=== PATIENT | female | born 1950 | race Caucasian/White ===

== ENCOUNTER → 2021-02-17 09:53 | Outpatient (CLI) | payer MEDICARE, SELFPAY ==
--- NOTE | 2021-02-17 | DI.US.S_ITS ---
PROCEDURE: US CAROTID DOPPLER BI INDICATIONS: OCCLUSION AND STENOSIS. History of left carotid endarterectomy, approximately 2012 TECHNIQUE: Color and pulse Doppler interrogation was performed of both carotid systems, with image documentation and velocity measurements. COMPARISON: None. FINDINGS: Stenosis calculations are based on SRU (Society of Radiologists in Ultrasound) criteria. Right side: Brachial blood pressure: 216/94 mm Hg. Common carotid artery peak systolic velocity: 70 cm/sec. Internal carotid artery peak systolic velocity: 250 cm/sec. Internal carotid artery end diastolic velocity: 46 cm/sec. External carotid artery peak systolic velocity: 217 cm/sec. ICA/CCA peak systolic ratio: 2.9 . Woods scale imaging description: There is chunky calcified stenotic disease involving the carotid bifurcation and proximal internal and external carotid arteries. There is a severe proximal left internal carotid artery stenosis. Percent internal carotid artery stenosis: Greater than 70% by velocity criteria . Vertebral artery: Flow direction is antegrade. Left side: Brachial blood pressure: 164/84 mm Hg. Common carotid artery peak systolic velocity: 214 cm/sec. Internal carotid artery peak systolic velocity: 157 cm/sec. Internal carotid artery end diastolic velocity: 25 cm/sec. External carotid artery peak systolic velocity: 171 cm/sec. ICA/CCA peak systolic ratio: 0.7 . Woods scale imaging description: Patent, post remote carotid endarterectomy Percent internal carotid artery stenosis: None identified. Vertebral artery: Not well seen IMPRESSION: 1. There is calcific atherosclerotic stenosis involving the right carotid bifurcation and proximal right internal carotid artery, which by velocity criteria is 70% or greater in the internal carotid artery. 2. Remote left carotid endarterectomy with wide patency. 3. Note is made of a significant pressure difference between the right and left brachial arteries. This implies a hemodynamically significant stenosis somewhere between the origin of the left subclavian artery and the left brachial cuff. The left vertebral artery is not well visualized, and the direction of flow in the left vertebral artery is not identified. Dictated by: Stan Rodriguez M.D. on 02/17/2021 at 13:01 Approved by: Stan Rodriguez M.D. on 02/17/2021 at 13:08
--- NOTE | 2021-02-17 | DI.ECHO.S_ITS ---
[facility] +---------+ : : [address] : : : : [id number] : : : : Phone: [phone] Echocardiogram Report + + :Name: CONOR GIORDANO Study Date: 02/17/2021 Height: 61 in : :[facility] ReadingLocation: Weight: 203 lb : : Gender: Female BSA: 1.9 m2 : :: 1950 Age: 70 yrs BP: 185/103 mmHg: :Reason For Study: Murmur : :Ordering Physician: Jerel : :Kathy Arellano Performed By: Demetris Alexander : :Referring: JEREL ARELLANO : + + Interpretation Summary 1) Mildly increased left ventricular thickness (concentric) with normal size, normal wall motion, and normal systolic function (EF 65-70%). 2) Normal right ventricular size and function. 3) No significant valvular abnormalities. 4) Hypertension present during the study (BP 185/103mmHg). 5) No prior Echo available for comparison. Procedure: A two-dimensional transthoracic echocardiogram with color flow and Doppler was performed. The study quality was technically adequate. There is no prior echocardiogram noted for this patient. The patient was in sinus rhythm with heart rates between 62-72 bpm during the exam. Left Ventricle: The left ventricle is normal in size. There is mild concentric left ventricular hypertrophy. Left ventricular systolic function is normal. The ejection fraction is estimated to be 65-70%. There are no focal wall motion abnormalities. Diastolic parameters suggest a relaxation abnormality of the left ventricle, consistent with probable normal filling pressures. Right Ventricle: The right ventricle is normal in size and function. Atria: Both atria are normal in size. There is no Doppler evidence for an interatrial shunt. Mitral Valve: The mitral valve is normal in structure and function. There is no mitral regurgitation noted. Aortic Valve: The aortic valve is normal in structure and function. There is no aortic valve stenosis. No aortic regurgitation is present. Tricuspid Valve: The tricuspid valve is normal in structure and function. Pulmonary artery pressures cannot be estimated because of the lack of a measurable TR jet velocity but the IVC suggests a CVP of around 3 mmHg. There is a trace or physiologic amount of tricuspid regurgitation. Pulmonic Valve: The pulmonic valve is not well seen, but is grossly normal. There is no pulmonic valvular regurgitation. Great Vessels: The aortic root is normal size. The dimensions of the ascending aorta are normal. The IVC is of normal diameter and collapses greater than 50% with a sniff. This suggests a low right atrial pressure of 3 mm Hg. Pericardium/ Pleura There is no pericardial effusion. There is no pleural effusion. MMode/2D Measurements & Calculations LVIDd: 4.8 cm LVOT diam: 2.0 cm LVIDs: 3.3 cm Ao root diam: 2.7 cm FS: 31.0 % asc Aorta Diam: 3.3 cm IVSd: 1.3 cm LVPWd: 1.1 cm LV madsen. diameter/BSA (cm/m^2): 2.5 LV sys. diameter/BSA (cm/m^2): 1.8 LA dimension: 3.4 cm RA long axis: 4.4 cm LA A2 area: 16.4 cm2 LA A4 area: 14.1 cm2 LA length (vol): 5.0 cm LA vol: 39.0 ml LA vol index: 20.5 ml/m2 LVLs ap4: 7.2 cm LVLd ap2: 7.4 cm LVLs ap2: 6.2 cm TAPSE_phl: 2.8 cm RVIDd/LVIDd_phl: 0.43 Doppler Measurements & Calculations LVOT Max Geraldo: 155.0 cm/sec MV E max geraldo: 103.0 cm/sec LV V1 max P.6 mmHg MV A max geraldo: 112.0 cm/sec LV V1 VTI: 32.5 cm MV E/A: 0.92 Med Peak E' Geraldo: 7.1 cm/sec E/E' med: 14.6 Lat Peak E' Geraldo: 6.9 cm/sec E/E' lat: 15.0 E/e' average: 14.8 MV dec time: 0.27 sec PA V2 max: 121.0 cm/sec SV(LVOT): 102.1 ml PA V2 mean: 91.1 cm/sec PA mean P.0 mmHg PA pr(Accel): 50.6 mmHg MV P1/2t-pr_phl: 80.0 msec Reading Physician:10:38 AM
== END ==
PROVIDERS: PCP Physician Assistant; Referring Provider Internal Medicine Cardiovascular Disease; Visit Provider Internal Medicine Cardiovascular Disease
DX: R01.1 Cardiac murmur, unspecified (principal); I65.23 Occlusion and stenosis of bilateral carotid arteries; Z98.890 Other specified postprocedural states
CPT/HCPCS: 93306; 93880

== ENCOUNTER 2021-02-17 12:22 | Emergency (ER) | payer MEDICARE, SELFPAY ==
[2021-02-17 12:27] VITALS: BP 212/88; PULSE 68; RESP 16; TEMP 36.6; O2SAT 100; BMI 38.3
--- NOTE | 2021-02-17 16:31 | ED.GENADULT ---
HPI - General Adult General Chief complaint: Hypertension Stated complaint: Sent From DI, High BP on Rt Arm Time Seen by Provider: 02/17/21 16:30 Source: patient Mode of arrival: Ambulatory Limitations: no limitations History of Present Illness HPI narrative: 70-year-old female nonsmoker with history of hypertension presents for evaluation of elevated blood pressure. She was in the Diagnostic Imaging Department and getting a carotid ultrasound when it was noted that her blood pressure was over 200. The patient has a mild, vague headache and denies any blurred vision, trouble speech nor other neurologic symptoms such as numbness, tingling or weakness. She denies any chest pain or shortness of breath and she has no abdominal pain, nausea or vomiting. She has been having difficulty controlling her blood pressure is. She takes her medications as directed and denies missing any doses Related Data Home Medications Medication Instructions Recorded Confirmed amlodipine 10 mg tablet 10 mg PO DAILY 02/17/21 02/17/21 bupropion HCl 300 mg 24 hr tablet, 300 mg PO DAILY 02/17/21 02/17/21 extended release hydralazine 50 mg tablet 50 mg PO TID 02/17/21 02/17/21 losartan 100 1 tab PO DAILY 02/17/21 02/17/21 mg-hydrochlorothiazide 25 mg tablet metoprolol succinate 25 mg 25 mg PO DAILY 02/17/21 02/17/21 tablet,extended release 24 hr potassium chloride 10 mEq 10 meq PO DAILY 02/17/21 02/17/21 tablet,extended release rosuvastatin 40 mg tablet 40 mg PO DAILY 02/17/21 02/17/21 Allergies Allergy/AdvReac Type Severity Reaction Status Date / Time No Known Drug Allergies Allergy Verified 02/17/21 12:27 Review of Systems Review of Systems Narrative: GENERAL: See HPI HEENT: Denies sinus pain, ear pain, sore throat, difficulty swallowing, dizziness. RESPIRATORY: Denies dyspnea, cough, wheezing, hemoptysis, sputum. CARDIOVASCULAR: Denies chest pain, palpitations, orthopnea, edema, GASTROINTESTINAL: Denies nausea, vomiting, abdominal pain, diarrhea, constipation, melena. : Denies dysuria, frequency, incontinence, hematuria, urinary retention. MUSCULOSKELETAL: denies weakness, joint pain, or bony pain SKIN: Denies rash, skin lesions, or other NEUROLOGIC: Denies weakness, numbness, change in speech, confusion, seizures, incoordination. PSYCHIATRIC: No concerning psychosocial issues. 12 point review of systems is negative except for those stated above Patient History Medical History Hypertension Social History Smoking Status: Unknown if ever smoked Smoking Status: Unknown if ever smoked alcohol intake frequency: holidays/special occasions only Substance Use Type: does not use Exam Narrative Exam Narrative: GEN: AOx3 and in mild distress EYES: Pupils are equal, round, and reactive to light and accommodation. Extraoccular muscles are intact bilaterally. There is no subconjunctival hemorrhage or exudate. CHEST: Lungs are clear to auscultation bilaterally and free of wheezes, rales, or rhonchi. Heart rate is regular rhythm, there are no murmurs, clicks, rubs, or gallops. There is no chest wall tenderness. ABD: Abdomen is soft and nontender. There is no guarding or rebound. Bowel sounds are normal in all 4 quadrants. There is no mass or organomegaly. EXT: Full painless ROM of all extremities with no loss of sensation or strength. SKIN: Warm, pink, and dry. No erythema or rash Initial Vital Signs Initial Vital Signs: Vital Signs Temperature 97.9 F 02/17/21 12:27 Pulse Rate 68 02/17/21 12:27 Respiratory Rate 16 02/17/21 12:27 Blood Pressure 212/88 H 02/17/21 12:27 Pulse Oximetry 100 02/17/21 12:27 Course Orders Ordered: ED Orders 02/17/21 15:45 BNP [NT-proBNP (BNP-Adult 18+)] Stat Complete Blood Count AUTO DIFF Stat Comprehensive Metabolic Panel Stat Lipase Stat Troponin & CK Cardiac Panel Stat 02/17/21 16:34 XR chest 1V Stat EKG-12 Lead Stat Discontinued Medications Aspirin (Aspirin 81 Mg Chew Tab) 324 mg PO NOW ONE Stop: 02/17/21 16:34 Last Admin: 02/17/21 16:54 Dose: 324 mg Documented by: BABS Vital Signs Vital signs: Vital Signs - 8 hr 02/17/21 12:27 02/17/21 16:34 02/17/21 16:56 Temperature 97.9 F Pulse Rate 68 77 70 Respiratory Rate 16 14 16 Blood Pressure 212/88 H 213/86 H Pulse Oximetry 100 99 99 02/17/21 17:36 Temperature Pulse Rate 70 Respiratory Rate 14 Blood Pressure 189/79 H Pulse Oximetry 99 Medical Decision Making Lab Data Result diagrams: 02/17/21 15:45 02/17/21 15:45 Labs: Lab Results 02/17/21 02/17/21 02/17/21 Range/Units 15:45 15:45 15:45 WBC 6.6 (4.5-11.0) X10^3/uL RBC 3.80 L (4.0-5.2) X10^6/uL Hgb 12.6 (12.0-16.0) g/dL Hct 36.9 (36-46) % MCV 97.3 (80-100) fL MCH 33.2 (26-34) PG MCHC 34.1 (30-36) % RDW 14.0 (11.6-14.8) % Plt Count 288 (150-400) X10^3/uL Neut % (Auto) 58.0 (50-75) % Lymph % (Auto) 28.7 (25-40) % Eddy % (Auto) 11.4 (3-14) % Eos % (Auto) 1.2 L (2-4) % Baso % (Auto) 0.7 (0-2) % Neut # (Auto) 3800 (8106-6203) /uL Lymph # (Auto) 1900 (3163-9388) /uL Eddy # (Auto) 700 (0-900) /uL Eos # (Auto) 100 (0-450) /uL Baso # (Auto) 0 (0-100) /uL Sodium 136 L (137-145) mmol/L Potassium 2.8 L (3.4-5.1) mmol/L Chloride 98 (98-107) mmol/L Carbon Dioxide 30 (22-32) mmol/L BUN 14 (7-17) mg/dL Creatinine 1.04 (0.52-1.04) mg/dL Estimated GFR 52.7 L (>60) mL/min BUN/Creatinine Ratio 13.5 (6-22) Glucose 106 (80-110) mg/dL Calcium 9.8 (8.4-10.2) mg/dL Total Bilirubin 0.5 (0.2-1.3) mg/dL AST 34 (14-36) IU/L ALT 27 (<35) IU/L Alkaline Phosphatase 88 (38-126) U/L Total Creatine Kinase 57 (30-135) U/L CK-MB (CK-2) TNP CK-MB (CK-2) Rel Index TNP Troponin I < 0.012 (0.01-0.034) ng/mL NT-Pro-B Natriuret Pep 50 (<125) pg/mL Total Protein 7.0 (6.3-8.2) g/dL Albumin 4.2 (3.5-5.0) g/dL Globulin 2.8 (1.7-4.1) g/dL Albumin/Globulin Ratio 1.5 (1.0-2.8) Lipase 198 (23-300) U/L MDM Narrative Medical decision making narrative: Patient asymptomatic for the majority of her visit. Without intervention her blood pressure has decreased into the 180s. Her labs are reassuring, EKG is unremarkable and chest x-ray is clear. She has no focal findings and no evidence of hypertensive emergency. Return precautions given and questions answered to her apparent satisfaction Discharge Plan Departure Patient Disposition: Home Clinical Impression: Hypertension Qualifiers: Hypertension type: unspecified Qualified Code(s): I10 - Essential (primary) hypertension Instructions: DI for High Blood Pressure Activity Restrictions/Additional Instructions: *You have been diagnosed with [asymptomatic hypertension. He has a very reassuring story, physical exam and blood pressure has improved to the 180s.] *What to do: *Please continue to take your regular medications as directed. [ ] New medication prescriptions sent to your pharmacy: [ ] [ ] New medication written as a paper prescription [x ] No new medications given *Please follow up with your primary care provider in 2-3 days, call for an appointment. Let them know you were seen in the Emergency Department and that we ask that you be seen in follow up. We will electronically transmit a record of today's note if your PCP is in our system *If you do not have a primary care provider please contact the [facility] Resource line at [phone]. They will ask some questions about your medical history and help get you set up with a doctor in the community. *Return to Emergency Department if you should have any new, worsening or concerning symptoms, such as [fever greater than 101 F, shaking chills, worsening pain, persistent vomiting or other bothersome symptoms] Prescriptions: No Action potassium chloride 10 mEq tablet extended release 10 meq PO DAILY RF: 0 losartan-hydrochlorothiazide 100-25 mg tablet 1 tab PO DAILY RF: 0 amlodipine 10 mg tablet 10 mg PO DAILY RF: 0 hydralazine 50 mg tablet 50 mg PO TID RF: 0 metoprolol succinate 25 mg tablet extended release 24 hr 25 mg PO DAILY RF: 0 rosuvastatin 40 mg tablet 40 mg PO DAILY RF: 0 bupropion HCl 300 mg tablet extended release 24 hr 300 mg PO DAILY RF: 0 Referrals: Alina Adrian PA-C [Primary Care Provider] -
[2021-02-17 16:34] VITALS: PULSE 77; RESP 14; O2SAT 99
--- NOTE | 2021-02-17 16:34 | DI.RAD.S_ITS ---
PROCEDURE: XR CHEST 1V INDICATIONS: elevated bp TECHNIQUE: One view of the chest was acquired. COMPARISON: None. FINDINGS: Surgical changes and devices: None. Lungs and pleura: Lungs are clear. No pleural effusions or pneumothorax. Mediastinum: Mediastinal contours appear normal. Heart size is normal. Bones and chest wall: No suspicious bony lesions. Overlying soft tissues appear unremarkable. IMPRESSION: No acute cardiopulmonary disease process. Dictated by: Apple Gerard MD, PhD on 02/17/2021 at 16:50 Approved by: Apple Gerard MD, PhD on 02/17/2021 at 16:50
[2021-02-17 16:50] LABS: Add Manual Diff / Slide Review NO; Basophils Absolute Auto 0 /uL (0-100); Basophils Percent Auto 0.7 % (0-2); Eosinophils Absolute Auto 100 /uL (0-450); Eosinophils Percent Auto 1.2 % (2-4); Hematocrit 36.9 % (36-46); Hemoglobin 12.6 g/dL (12.0-16.0); Lymphocytes Absolute Auto 1900 /uL (1100-4500); Lymphocytes Percent Auto 28.7 % (25-40); Mean Corpuscular HGB Conc 34.1 % (30-36); Mean Corpuscular Hemoglobin 33.2 PG (26-34); Mean Corpuscular Volume 97.3 fL (80-100); Monocytes Absolute Auto 700 /uL (0-900); Monocytes Percent Auto 11.4 % (3-14); Neutrophils Absolute Auto 3800 /uL (1500-7000); Platelet Count 288 X10^3/uL (150-400); White Blood Cell Count 6.6 X10^3/uL (4.5-11.0)
[2021-02-17] MEDS: ASPIRIN 81 MG CHEW TAB 324 MG PO (16:54)
[2021-02-17 16:56] VITALS: BP 213/86; PULSE 70; RESP 16; O2SAT 99
[2021-02-17 17:04] LABS: Alanine Aminotransferase 27 IU/L (<35); Albumin 4.2 g/dL (3.5-5.0); Albumin Globulin Ratio 1.5 (1.0-2.8); Alkaline Phosphatase 88 U/L (38-126); Aspartate Aminotransferase 34 IU/L (14-36); BUN Creatinine Ratio 13.5 (6-22); Bilirubin Total 0.5 mg/dL (0.2-1.3); Blood Urea Nitrogen 14 mg/dL (7-17); Calcium 9.8 mg/dL (8.4-10.2); Carbon Dioxide 30 mmol/L (22-32); Chloride 98 mmol/L (98-107); Creatine Kinase 57 U/L (30-135); Estimated Glomerular Filt Rate 52.7 mL/min (>60); Globulin 2.8 g/dL (1.7-4.1); Glucose 106 mg/dL (80-110); HEMOLYSIS < 15 (0-50); Lipase 198 U/L (23-300); Potassium 2.8 mmol/L (3.4-5.1); Sodium 136 mmol/L (137-145)
[2021-02-17 17:16] LABS: Troponin I < 0.012 ng/mL (0.01-0.034)
[2021-02-17 17:36] VITALS: BP 189/79; PULSE 70; RESP 14; O2SAT 99
[2021-02-17 17:51] LABS: NT-proBNP (BNP-Adult 18+) 50 pg/mL (<125)
== END 2021-02-17 17:37 | disposition home or self-care (01) ==
PROVIDERS: Emergency Provider Emergency Medicine; PCP Physician Assistant
DX: I10 Essential (primary) hypertension (principal)
CPT/HCPCS: 36415; 71045; 80053; 82550; 83690; 83880; 84484; 85025; 93005; 93306; 93880; 99284

== ENCOUNTER → 2021-04-11 14:45 | Outpatient (CLI) | payer MEDICARE, SELFPAY ==
[2021-04-11 16:28] LABS: BUN Creatinine Ratio 14.3 (6-22); Blood Urea Nitrogen 14 mg/dL (7-17); Calcium 9.7 mg/dL (8.4-10.2); Carbon Dioxide 32 mmol/L (22-32); Chloride 95 mmol/L (98-107); Estimated Glomerular Filt Rate 56.4 mL/min (>60); Glucose 80 mg/dL (80-110); HEMOLYSIS < 15 (0-50); Potassium 3.4 mmol/L (3.4-5.1); Sodium 136 mmol/L (137-145)
== END ==
PROVIDERS: PCP Physician Assistant; Referring Provider Internal Medicine Cardiovascular Disease; Visit Provider Internal Medicine Cardiovascular Disease
DX: I65.29 Occlusion and stenosis of unspecified carotid artery (principal)
CPT/HCPCS: 36415; 80048

== ENCOUNTER → 2021-04-15 11:57 | Outpatient (CLI) | payer MEDICARE, SELFPAY ==
--- NOTE | 2021-04-15 12:00 | DI.CT.S_ITS ---
PROCEDURE: CT ANGIO NECK INDICATIONS: Occlusion and stenosis of unspecified carotid artery TECHNIQUE: After the administration of intravenous contrast, 1.5 mm axial sections acquired from the aortic arch to the [place] of Chávez. Maximum intensity projection (MIP) reformats were then performed. COMPARISON: None. FINDINGS: Image quality: Excellent. Carotid system: The great vessels demonstrate a conventional anatomy as they arise from the aortic arch. There is an existing proximal left subclavian artery stat, extending slightly into the aorta. The stent appears to be occluded. There is a focal origin stenosis of the left common carotid artery which is likely at least moderate, and potentially severe. There is a prosthetic bypass between the left axillary artery and the left carotid bifurcation. There is a stenosis of the graft near the anastomosis with the carotid bifurcation that is likely less than 50%. The proximal left internal carotid artery is markedly tortuous without focal stenosis. Mild calcified brachiocephalic artery origin stenosis. There is patency of the proximal right common carotid artery. There is a calcified stenosis of the origin of the right internal carotid artery which may be as much as 70%. Posterior circulation: The origins of the vertebral arteries appear patent. The more superior portions of the vertebral arteries demonstrate normal course and caliber. They join to form a normal appearing basilar artery. Soft tissues: Visualized neck soft tissues demonstrate no suspicious abnormalities. Thyroid gland is unremarkable . Bones: No suspicious bony lesions. Advanced cervical spondylosis. IMPRESSION: 1. Extensive vasculopathy. 2. 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 There is a stenosis of the graft near the anastomosis to the carotid likely measuring somewhat less than 50%. 3. At least moderate and probably severe origin stenosis of the left common carotid artery at the aorta. 4. Calcified stenosis of the origin of the right internal carotid artery which may be as much as 70%. 5. Advanced cervical spondylitic change. Any quantitative stenosis measurements were performed using the NASCET criteria. Dictated by: Stan Rodriguez M.D. on 04/15/2021 at 12:17 Approved by: Stan Rodriguez M.D. on 04/15/2021 at 12:29
== END ==
PROVIDERS: PCP Physician Assistant; Referring Provider Internal Medicine Cardiovascular Disease; Visit Provider Internal Medicine Cardiovascular Disease
DX: I65.29 Occlusion and stenosis of unspecified carotid artery (principal); M31.9 Necrotizing vasculopathy, unspecified; I65.23 Occlusion and stenosis of bilateral carotid arteries; Z95.1 Presence of aortocoronary bypass graft; Z95.5 Presence of coronary angioplasty implant and graft
CPT/HCPCS: 70498; Q9967

== ENCOUNTER → 2021-06-10 10:17 | Outpatient (CLI) | payer MEDICARE, SELFPAY ==
[2021-06-10 12:30] LABS: COVID19 -Nasal RAPID Negative (Negative)
== END ==
PROVIDERS: PCP Physician Assistant; Visit Provider Physician Assistant
DX: Z20.822 Contact with and (suspected) exposure to COVID-19 (principal)
CPT/HCPCS: 87635; C9803

== ENCOUNTER → 2021-06-13 10:42 | Outpatient (CLI) | payer MEDICARE, SELFPAY ==
--- NOTE | 2021-06-14 18:46 | DI.NM.S_ITS ---
DATE OF SERVICE: PROCEDURE: Pharmacological perfusion study. DATE OF STUDY: June 13, 2021. INDICATIONS: Dyspnea with underlying peripheral vascular disease, hypertension and hyperlipidemia. RADIOPHARMACEUTICAL: 27.1 millicurie technetium-99m Myoview IV was injected at stress and 25.9 millicurie technetium-99m Myoview IV was injected at rest. CARDIAC STRESS: The patient underwent IV Lexiscan perfusion study under the supervision of an attending staff as per standard protocol. The patient felt slight shortness of breath post Lexiscan injection. Otherwise, she remained hemodynamically stable. Baseline rhythm was sinus. During stress, no convincing ischemic changes or significant arrhythmias seen. RAW DATA: There is increased subdiaphragmatic activity. The patient's weight is 203 pounds. GATED STUDY: Resting LV ejection fraction 78 and stress LV ejection fraction is 79 percent without any obvious wall motion abnormalities. Resting end-diastolic volume 99 mL. TID ratio 0.98, which is within normal limits. Lung/heart ratio 0.29, which is within normal limits. MYOCARDIAL PERFUSION SCAN: Stress supine and resting supine images revealed a small size, mildly decreased perfusion of basal anterior wall as well as basal inferior wall and inferior apex. During stress prone basal anterior wall as well as basal inferior wall defect got normalized. The patient remained to have mildly decreased perfusion of inferior apex. No reversible ischemia. CONCLUSION: 1. No obvious reversible ischemia. 2. Evidence of breast tissue attenuation artifact as well as diaphragmatic tissue attenuation artifact which got resolved during prone images. The patient also has fixed small size inferior apical defect. There is increased subdiaphragmatic activity. On gated study, inferior wall does not have any wall motion abnormalities. Peck is moving well. This may be due to persistent tissue attenuation artifact however one cannot rule out the possibility of small old inferior apical infarction. Left ventricular function is preserved. Overall low-risk myocardial perfusion scan. Clinical correlation is recommended. Bette Doyle - CAREY/susy/shelly doc#: [id number]/job#: [id number] dd: 06/14/2021 17:30:00 dt: 06/14/2021 18:25:00 DICTATING MD/COPIES TO: Aron Neal MD COPIES MNE: CAITLIN;
== END ==
PROVIDERS: PCP Physician Assistant; Referring Provider Internal Medicine Cardiovascular Disease; Visit Provider Internal Medicine Cardiovascular Disease
DX: R06.00 Dyspnea, unspecified (principal); I73.9 Peripheral vascular disease, unspecified; I10 Essential (primary) hypertension; E78.5 Hyperlipidemia, unspecified
CPT/HCPCS: 78452; 93017; A9502; J2785

== ENCOUNTER → 2022-04-17 08:07 | Outpatient (CLI) | payer MEDICARE, SELFPAY ==
[2022-04-17 10:09] LABS: Add Manual Diff / Slide Review NO; Basophils Absolute Auto 0 /uL (0-100); Basophils Percent Auto 0.4 % (0-2); Eosinophils Absolute Auto 100 /uL (0-450); Eosinophils Percent Auto 2.1 % (2-4); Hematocrit 33.2 % (36-46); Hemoglobin 11.4 g/dL (12.0-16.0); Lymphocytes Absolute Auto 1000 /uL (1100-4500); Lymphocytes Percent Auto 25.1 % (25-40); Mean Corpuscular HGB Conc 34.5 % (30-36); Mean Corpuscular Hemoglobin 31.9 PG (26-34); Mean Corpuscular Volume 92.5 fL (80-100); Monocytes Absolute Auto 500 /uL (0-900); Monocytes Percent Auto 12.1 % (3-14); Neutrophils Absolute Auto 2400 /uL (1500-7000); Neutrophils Percent Auto 60.3 % (50-75); Platelet Count 145 X10^3/uL (150-400); Red Blood Cell Count 3.59 X10^6/uL (4.0-5.2); Red Cell Distribution Width 16.4 % (11.6-14.8); White Blood Cell Count 3.9 X10^3/uL (4.5-11.0)
[2022-04-17 10:32] LABS: Alanine Aminotransferase 27 IU/L (<35); Albumin 3.9 g/dL (3.5-5.0); Albumin Globulin Ratio 1.6 (1.0-2.8); Alkaline Phosphatase 60 U/L (38-126); Aspartate Aminotransferase 33 IU/L (14-36); BUN Creatinine Ratio 13.3 (6-22); Bilirubin Total 0.4 mg/dL (0.2-1.3); Blood Urea Nitrogen 14 mg/dL (7-17); Carbon Dioxide 32 mmol/L (22-32); Chloride 95 mmol/L (98-107); Cholesterol 123 mg/dL (140-199); Estimated Glomerular Filt Rate 58 mL/min (>60); Globulin 2.4 g/dL (1.7-4.1); Glucose 88 mg/dL (80-110); HDL Cholesterol 47 mg/dL (40-60); HEMOLYSIS < 15 (0-50); LDL Cholesterol Calculated 57 mg/dL (<100); Potassium 3.1 mmol/L (3.4-5.1); Sodium 137 mmol/L (137-145); Total Protein 6.3 g/dL (6.3-8.2); Triglycerides 95 mg/dL (35-150)
== END ==
PROVIDERS: PCP Physician Assistant; Referring Provider Internal Medicine Cardiovascular Disease; Visit Provider Internal Medicine Cardiovascular Disease
DX: E78.5 Hyperlipidemia, unspecified (principal); I10 Essential (primary) hypertension; M06.09 Rheumatoid arthritis without rheumatoid factor, multiple sites; Z79.899 Other long term (current) drug therapy
CPT/HCPCS: 36415; 80053; 80061; 85025

== ENCOUNTER → 2022-04-25 10:46 | Outpatient (CLI) | payer MEDICARE, SELFPAY ==
--- NOTE | 2022-04-25 11:10 | DI.CT.S_ITS ---
PROCEDURE: CT ANGIO NECK INDICATIONS: Occlusion and stenosis of precerebral artery TECHNIQUE: After the administration of intravenous contrast, 1.5 mm axial sections acquired from the aortic arch to the [place] of Chávez. Maximum intensity projection (MIP) reformats were then performed. COMPARISON: [facility], CT, CT ANGIO NECK, 04/15/2021, 12:04. FINDINGS: Image quality: Limited by bolus timing, with venous contamination. There is streak artifact seen through the level of the shoulders. Carotid system: The great vessels demonstrate a conventional anatomy as they arise from the aortic arch. Focal atherosclerotic calcification can be seen, including at the origin of the left common carotid artery. There is approximately 50% narrowing seen at the origin of the left common carotid artery. There is a left proximal subclavian artery stent, which is occluded, as before. The origins of the common carotid arteries appear patent. The common carotid arteries demonstrate normal calibers and courses. The bifurcation regions demonstrate atherosclerotic irregularity. Within the left carotid bifurcation region, postoperative change is seen, with a graft to the left subclavian artery, which is patent. Within the proximal aspect the stent, there is approximately 50% narrowing, as on series 10, image 15, as before. No significant narrowing of the left proximal internal carotid artery can be seen. On the right, there is approximately 80% narrowing of the proximal internal carotid artery. The more distal internal carotid arteries demonstrate normal course and caliber. Posterior circulation: The origins of the vertebral arteries appear patent. The more superior portions of the vertebral arteries demonstrate normal course and caliber. They join to form a normal appearing basilar artery. The right vertebral artery is dominant to the left. Soft tissues: Visualized neck soft tissues demonstrate no suspicious abnormalities. Thyroid gland demonstrates no significant abnormality. Bones: No suspicious bony lesions. Visualized cervical spine appears normally aligned. Advanced cervical spine degenerative change can be seen. IMPRESSION: Focal atherosclerotic calcification and narrowing seen of the right proximal internal carotid artery, approximately 80%. There is a bypass graft running from the left carotid bifurcation region to the left subclavian artery, which is patent. However, there is approximately 50% narrowing seen within this stent proximally. There is a left proximal subclavian artery stent seen, which demonstrates chronic occlusion. Approximately 50% narrowing seen involving the origin of the left common carotid artery. Advanced cervical spine degenerative change noted. Any quantitative stenosis measurements were performed using the NASCET criteria. Dictated by: Ricardo Zuñiga M.D. on 04/25/2022 at 10:21 Approved by: Ricardo Zuñiga M.D. on 04/25/2022 at 10:28
== END ==
PROVIDERS: PCP Physician Assistant; Referring Provider Internal Medicine Cardiovascular Disease; Visit Provider Internal Medicine Cardiovascular Disease
DX: I65.23 Occlusion and stenosis of bilateral carotid arteries (principal); M47.812 Spondylosis without myelopathy or radiculopathy, cervical region; T82.858A Stenosis of other vascular prosthetic devices, implants and grafts, initial encounter
CPT/HCPCS: 70498; Q9967

== ENCOUNTER → 2022-05-04 12:00 | Outpatient (CLI) | payer MEDICARE, SELFPAY ==
[2022-05-04 12:38] LABS: Add Manual Diff / Slide Review NO; Basophils Absolute Auto 0 /uL (0-100); Basophils Percent Auto 0.5 % (0-2); Eosinophils Absolute Auto 100 /uL (0-450); Eosinophils Percent Auto 1.9 % (2-4); Hematocrit 34.4 % (36-46); Hemoglobin 12.1 g/dL (12.0-16.0); Lymphocytes Absolute Auto 1100 /uL (1100-4500); Lymphocytes Percent Auto 26.6 % (25-40); Mean Corpuscular Hemoglobin 32.3 PG (26-34); Mean Corpuscular Volume 92.2 fL (80-100); Monocytes Absolute Auto 400 /uL (0-900); Monocytes Percent Auto 8.7 % (3-14); Neutrophils Absolute Auto 2500 /uL (1500-7000); Neutrophils Percent Auto 62.3 % (50-75); Platelet Count 162 X10^3/uL (150-400); Red Blood Cell Count 3.73 X10^6/uL (4.0-5.2); Red Cell Distribution Width 16.2 % (11.6-14.8); White Blood Cell Count 4.1 X10^3/uL (4.5-11.0)
[2022-05-04 12:48] LABS: Reticulocyte Count, Percent 1.3 % (1.1-2.6)
[2022-05-04 13:07] LABS: Alanine Aminotransferase 41 IU/L (<35); Albumin 3.7 g/dL (3.5-5.0); Albumin Globulin Ratio 1.2 (1.0-2.8); Alkaline Phosphatase 67 U/L (38-126); Aspartate Aminotransferase 46 IU/L (14-36); BUN Creatinine Ratio 17.1 (6-22); Bilirubin Total 0.6 mg/dL (0.2-1.3); Blood Urea Nitrogen 18 mg/dL (7-17); Calcium 9.1 mg/dL (8.4-10.2); Carbon Dioxide 33 mmol/L (22-32); Chloride 96 mmol/L (98-107); Estimated Glomerular Filt Rate 58 mL/min (>60); Glucose 81 mg/dL (80-110); HEMOLYSIS < 15 (0-50); Potassium 3.1 mmol/L (3.4-5.1); Sodium 139 mmol/L (137-145); Total Protein 6.7 g/dL (6.3-8.2)
[2022-05-04 13:16] LABS: Total Iron Binding Capacity 368 ug/dL (265-497)
[2022-05-04 13:42] LABS: Ferritin 29 ng/mL (11-264)
[2022-05-04 13:48] LABS: INR 1.1 (0.9-1.3); Prothrombin Time 12.1 SECONDS (10.1-12.7)
[2022-05-04 14:14] LABS: Folate > 20.0 ng/mL (2.76-20.0); Vitamin B12 832 pg/mL (239-931)
== END ==
PROVIDERS: PCP Physician Assistant; Referring Provider Internal Medicine Cardiovascular Disease; Visit Provider Internal Medicine Cardiovascular Disease
DX: E87.6 Hypokalemia (principal); D61.818 Other pancytopenia
CPT/HCPCS: 36415; 80053; 82607; 82728; 82746; 83550; 85025; 85045; 85610

== ENCOUNTER → 2022-05-15 14:31 | Outpatient (CLI) | payer MEDICARE, SELFPAY ==
[2022-05-15 16:27] LABS: Blood Urea Nitrogen 15 mg/dL (7-17); Carbon Dioxide 28 mmol/L (22-32); Chloride 100 mmol/L (98-107); Estimated Glomerular Filt Rate > 60 mL/min (>60); Glucose 83 mg/dL (80-110); HEMOLYSIS < 15 (0-50); Potassium 3.3 mmol/L (3.4-5.1); Sodium 138 mmol/L (137-145)
== END ==
PROVIDERS: PCP Physician Assistant; Referring Provider Internal Medicine Cardiovascular Disease; Visit Provider Internal Medicine Cardiovascular Disease
DX: I10 Essential (primary) hypertension (principal)
CPT/HCPCS: 36415; 80048

== ENCOUNTER → 2022-07-12 12:30 | Outpatient (CLI) | payer MEDICARE, SELFPAY ==
[2022-07-12 13:27] LABS: Add Manual Diff / Slide Review NO; Basophils Absolute Auto 0 /uL (0-100); Basophils Percent Auto 0.4 % (0-2); Eosinophils Absolute Auto 100 /uL (0-450); Eosinophils Percent Auto 1.5 % (2-4); Hematocrit 37.3 % (36-46); Hemoglobin 12.5 g/dL (12.0-16.0); Lymphocytes Absolute Auto 1000 /uL (1100-4500); Lymphocytes Percent Auto 21.3 % (25-40); Mean Corpuscular HGB Conc 33.5 % (30-36); Mean Corpuscular Hemoglobin 31.6 PG (26-34); Mean Corpuscular Volume 94.4 fL (80-100); Monocytes Absolute Auto 500 /uL (0-900); Neutrophils Absolute Auto 3200 /uL (1500-7000); Neutrophils Percent Auto 65.8 % (50-75); Platelet Count 176 X10^3/uL (150-400); Red Blood Cell Count 3.95 X10^6/uL (4.0-5.2); Red Cell Distribution Width 15.6 % (11.6-14.8); White Blood Cell Count 4.9 X10^3/uL (4.5-11.0)
[2022-07-12 14:02] LABS: Alanine Aminotransferase 33 IU/L (<35); Albumin 4.3 g/dL (3.5-5.0); Albumin Globulin Ratio 1.7 (1.0-2.8); Alkaline Phosphatase 87 U/L (38-126); Aspartate Aminotransferase 39 IU/L (14-36); BUN Creatinine Ratio 16.5 (6-22); Bilirubin Total 0.7 mg/dL (0.2-1.3); Blood Urea Nitrogen 15 mg/dL (7-17); Calcium 9.1 mg/dL (8.4-10.2); Carbon Dioxide 30 mmol/L (22-32); Chloride 96 mmol/L (98-107); Estimated Glomerular Filt Rate > 60 mL/min (>60); Globulin 2.6 g/dL (1.7-4.1); Glucose 85 mg/dL (80-110); HEMOLYSIS < 15 (0-50); Potassium 3.4 mmol/L (3.4-5.1); Sodium 138 mmol/L (137-145); Total Protein 6.9 g/dL (6.3-8.2)
== END ==
PROVIDERS: PCP Physician Assistant; Referring Provider Internal Medicine Rheumatology; Visit Provider Internal Medicine Rheumatology
DX: M06.09 Rheumatoid arthritis without rheumatoid factor, multiple sites (principal); Z79.899 Other long term (current) drug therapy
CPT/HCPCS: 36415; 80053; 85025

== ENCOUNTER → 2022-10-12 12:22 | Outpatient (CLI) | payer MEDICARE, SELFPAY ==
[2022-10-12 12:47] LABS: Add Manual Diff / Slide Review NO; Basophils Absolute Auto 0 /uL (0-100); Basophils Percent Auto 0.5 % (0-2); Eosinophils Absolute Auto 100 /uL (0-450); Eosinophils Percent Auto 2.2 % (2-4); Hematocrit 37.2 % (36-46); Lymphocytes Absolute Auto 1400 /uL (1100-4500); Lymphocytes Percent Auto 33.5 % (25-40); Mean Corpuscular HGB Conc 34.9 % (30-36); Mean Corpuscular Hemoglobin 33.1 PG (26-34); Mean Corpuscular Volume 94.8 fL (80-100); Monocytes Absolute Auto 400 /uL (0-900); Monocytes Percent Auto 9.7 % (3-14); Neutrophils Absolute Auto 2200 /uL (1500-7000); Neutrophils Percent Auto 54.1 % (50-75); Platelet Count 178 X10^3/uL (150-400); Red Blood Cell Count 3.92 X10^6/uL (4.0-5.2); Red Cell Distribution Width 14.6 % (11.6-14.8)
[2022-10-12 13:08] LABS: Alanine Aminotransferase 31 IU/L (<35); Albumin 4.3 g/dL (3.5-5.0); Albumin Globulin Ratio 1.7 (1.0-2.8); Alkaline Phosphatase 81 U/L (38-126); Aspartate Aminotransferase 38 IU/L (14-36); BUN Creatinine Ratio 17.3 (6-22); Bilirubin Total 0.6 mg/dL (0.2-1.3); Blood Urea Nitrogen 17 mg/dL (7-17); Calcium 9.1 mg/dL (8.4-10.2); Carbon Dioxide 28 mmol/L (22-32); Chloride 101 mmol/L (98-107); Estimated Glomerular Filt Rate > 60 mL/min (>60); Globulin 2.5 g/dL (1.7-4.1); Glucose 77 mg/dL (80-110); HEMOLYSIS < 15 (0-50); Potassium 3.7 mmol/L (3.4-5.1); Sodium 138 mmol/L (137-145); Total Protein 6.8 g/dL (6.3-8.2)
== END ==
PROVIDERS: PCP Physician Assistant; Referring Provider Internal Medicine Rheumatology; Visit Provider Internal Medicine Rheumatology
DX: Z79.899 Other long term (current) drug therapy (principal); M06.09 Rheumatoid arthritis without rheumatoid factor, multiple sites
CPT/HCPCS: 36415; 80053; 85025

== ENCOUNTER → 2022-10-16 11:04 | Outpatient (CLI) | payer MEDICARE, SELFPAY ==
--- NOTE | 2022-10-16 | DI.CT.S_ITS ---
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 Maximum intensity projection (MIP) reformats were then performed. COMPARISON: [facility], CT, CT ANGIO NECK, 04/25/2022, 11:01. FINDINGS: Image quality: Excellent. Carotid system: The great vessels demonstrate a conventional anatomy as they arise from the aortic arch. Greater than 50 percent stenosis noted at the origin the left CCA The common carotid arteries demonstrate normal calibers and courses. 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 Focal stenosis within the proximal graft is approximately 50 percent and unchanged. On the right, calcified and noncalcified atherosclerotic plaque results in and greater than 80 percent stenosis in the proximal right ICA without occlusion. Calcified atherosclerotic plaque in both cavernous segments of the distal intracranial ICA results in [id number] stenosis as well. No occlusion or aneurysm Posterior circulation: The origins of the vertebral arteries appear patent. The more superior portions of the vertebral arteries demonstrate normal course and caliber. Right vertebral artery dominance They join to form a normal appearing basilar artery. Soft tissues: Visualized neck soft tissues demonstrate no suspicious abnormalities. Thyroid gland unremarkable . Bones: Degenerative disc disease and arthropathy in cervical spine remains stable from the prior IMPRESSION: Stable CT angiogram of the neck. 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 Atherosclerotic plaque results in 50 percent stenosis at the origin. Calcified and noncalcified atherosclerotic plaque in the origin of the right ICA results in greater than 80 percent stenosis, stable from prior Greater than 50 percent stenosis noted at the origin the left CCA Any quantitative stenosis measurements were performed using the NASCET criteria. Approved by: Florian St M.D. on 10/16/2022 at 17:07
== END ==
PROVIDERS: PCP Physician Assistant; Referring Provider Internal Medicine Cardiovascular Disease; Visit Provider Internal Medicine Cardiovascular Disease
DX: I65.23 Occlusion and stenosis of bilateral carotid arteries (principal); I70.8 Atherosclerosis of other arteries; Z98.890 Other specified postprocedural states
CPT/HCPCS: 70498; Q9967

== ENCOUNTER → 2022-12-01 13:48 | Outpatient (CLI) | payer MEDICARE, SELFPAY ==
[2022-12-11 13:09] LABS: Aldosterone/Renin Activity Rat 0.2 (0.0-30.0); Plama Renin, LC/MS/MS 29.663 ng/mL/hr (0.167-5.380)
== END ==
PROVIDERS: PCP Physician Assistant; Referring Provider Internal Medicine Cardiovascular Disease; Visit Provider Internal Medicine Cardiovascular Disease
DX: I10 Essential (primary) hypertension (principal)
CPT/HCPCS: 36415; 82088; 84244

== ENCOUNTER → 2023-01-30 11:52 | Outpatient (CLI) | payer MEDICARE, SELFPAY ==
[2023-01-30 12:59] LABS: Add Manual Diff / Slide Review NO; Basophils Absolute Auto 0 /uL (0-100); Basophils Percent Auto 0.4 % (0-2); Eosinophils Absolute Auto 100 /uL (0-450); Eosinophils Percent Auto 1.5 % (2-4); Hematocrit 38.7 % (36-46); Hemoglobin 13.7 g/dL (12.0-16.0); Lymphocytes Absolute Auto 1000 /uL (1100-4500); Lymphocytes Percent Auto 21.3 % (25-40); Mean Corpuscular HGB Conc 35.4 % (30-36); Mean Corpuscular Hemoglobin 33.5 PG (26-34); Mean Corpuscular Volume 94.5 fL (80-100); Monocytes Absolute Auto 500 /uL (0-900); Monocytes Percent Auto 10.9 % (3-14); Neutrophils Absolute Auto 3000 /uL (1500-7000); Neutrophils Percent Auto 65.9 % (50-75); Platelet Count 175 X10^3/uL (150-400); Red Blood Cell Count 4.09 X10^6/uL (4.0-5.2); Red Cell Distribution Width 14.3 % (11.6-14.8); White Blood Cell Count 4.6 X10^3/uL (4.5-11.0)
[2023-01-30 13:25] LABS: Alanine Aminotransferase 26 IU/L (<35); Albumin 4.4 g/dL (3.5-5.0); Alkaline Phosphatase 81 U/L (38-126); Aspartate Aminotransferase 30 IU/L (14-36); Bilirubin Total 0.5 mg/dL (0.2-1.3); Blood Urea Nitrogen 16 mg/dL (7-17); Calcium 9.3 mg/dL (8.4-10.2); Carbon Dioxide 30 mmol/L (22-32); Chloride 99 mmol/L (98-107); Estimated Glomerular Filt Rate 56 mL/min (>60); Globulin 2.2 g/dL (1.7-4.1); Glucose 85 mg/dL (80-110); HEMOLYSIS < 15 (0-50); Potassium 3.7 mmol/L (3.4-5.1); Sodium 138 mmol/L (137-145); Total Protein 6.6 g/dL (6.3-8.2)
== END ==
PROVIDERS: PCP Physician Assistant; Referring Provider Internal Medicine Rheumatology; Visit Provider Internal Medicine Rheumatology
DX: M06.09 Rheumatoid arthritis without rheumatoid factor, multiple sites (principal); Z79.899 Other long term (current) drug therapy
CPT/HCPCS: 36415; 80053; 85025

== ENCOUNTER → 2023-04-23 13:35 | Outpatient (CLI) | payer MEDICARE, SELFPAY ==
[2023-04-23 14:28] LABS: Add Manual Diff / Slide Review NO; Basophils Absolute Auto 0 /uL (0-100); Basophils Percent Auto 0.6 % (0-2); Eosinophils Absolute Auto 200 /uL (0-450); Eosinophils Percent Auto 2.5 % (2-4); Hematocrit 38.5 % (36-46); Hemoglobin 13.1 g/dL (12.0-16.0); Lymphocytes Absolute Auto 1600 /uL (1100-4500); Lymphocytes Percent Auto 23.9 % (25-40); Mean Corpuscular HGB Conc 34.2 % (30-36); Mean Corpuscular Hemoglobin 32.3 PG (26-34); Mean Corpuscular Volume 94.6 fL (80-100); Monocytes Absolute Auto 900 /uL (0-900); Monocytes Percent Auto 12.8 % (3-14); Neutrophils Absolute Auto 4100 /uL (1500-7000); Neutrophils Percent Auto 60.2 % (50-75); Platelet Count 212 X10^3/uL (150-400); Red Blood Cell Count 4.07 X10^6/uL (4.0-5.2); Red Cell Distribution Width 14.5 % (11.6-14.8); White Blood Cell Count 6.8 X10^3/uL (4.5-11.0)
[2023-04-23 14:53] LABS: Alanine Aminotransferase 37 IU/L (<35); Albumin 4.2 g/dL (3.5-5.0); Albumin Globulin Ratio 1.7 (1.0-2.8); Alkaline Phosphatase 68 U/L (38-126); Aspartate Aminotransferase 35 IU/L (14-36); BUN Creatinine Ratio 21.6 (6-22); Bilirubin Total 0.6 mg/dL (0.2-1.3); Blood Urea Nitrogen 25 mg/dL (7-17); Calcium 9.8 mg/dL (8.4-10.2); Carbon Dioxide 29 mmol/L (22-32); Chloride 96 mmol/L (98-107); Estimated Glomerular Filt Rate 51 mL/min (>60); Globulin 2.5 g/dL (1.7-4.1); Glucose 92 mg/dL (80-110); HEMOLYSIS < 15 (0-50); Potassium 3.8 mmol/L (3.4-5.1); Sodium 134 mmol/L (137-145); Total Protein 6.7 g/dL (6.3-8.2)
== END ==
PROVIDERS: PCP Physician Assistant; Referring Provider Internal Medicine Rheumatology; Visit Provider Internal Medicine Rheumatology
DX: M06.09 Rheumatoid arthritis without rheumatoid factor, multiple sites (principal); Z79.899 Other long term (current) drug therapy
CPT/HCPCS: 36415; 80053; 85025

== ENCOUNTER → 2023-05-07 13:57 | Outpatient (CLI) | payer MEDICARE, SELFPAY ==
[2023-05-07 15:24] LABS: BUN Creatinine Ratio 18.9 (6-22); Blood Urea Nitrogen 20 mg/dL (7-17); Calcium 9.5 mg/dL (8.4-10.2); Carbon Dioxide 26 mmol/L (22-32); Chloride 100 mmol/L (98-107); Estimated Glomerular Filt Rate 57 mL/min (>60); Glucose 89 mg/dL (80-110); HEMOLYSIS < 15 (0-50); Potassium 3.8 mmol/L (3.4-5.1); Sodium 137 mmol/L (137-145)
== END ==
PROVIDERS: PCP Physician Assistant; Referring Provider Internal Medicine Rheumatology; Visit Provider Internal Medicine Rheumatology
DX: M06.09 Rheumatoid arthritis without rheumatoid factor, multiple sites (principal); Z79.899 Other long term (current) drug therapy; E87.5 Hyperkalemia
CPT/HCPCS: 36415; 80048

== ENCOUNTER → 2023-08-01 13:09 | Outpatient (CLI) | payer MEDICARE, SELFPAY ==
[2023-08-01 14:44] LABS: Add Manual Diff / Slide Review NO; Basophils Absolute Auto 0 /uL (0-100); Basophils Percent Auto 0.5 % (0-2); Eosinophils Absolute Auto 100 /uL (0-450); Eosinophils Percent Auto 2.4 % (2-4); Hematocrit 38.1 % (36-46); Hemoglobin 13.2 g/dL (12.0-16.0); Lymphocytes Absolute Auto 1200 /uL (1100-4500); Lymphocytes Percent Auto 24.2 % (25-40); Mean Corpuscular HGB Conc 34.5 % (30-36); Mean Corpuscular Hemoglobin 33.2 PG (26-34); Mean Corpuscular Volume 96.2 fL (80-100); Monocytes Absolute Auto 500 /uL (0-900); Monocytes Percent Auto 9.4 % (3-14); Neutrophils Absolute Auto 3200 /uL (1500-7000); Neutrophils Percent Auto 63.5 % (50-75); Platelet Count 168 X10^3/uL (150-400); Red Blood Cell Count 3.96 X10^6/uL (4.0-5.2); Red Cell Distribution Width 14.3 % (11.6-14.8)
[2023-08-01 15:31] LABS: Alanine Aminotransferase 26 IU/L (<35); Albumin 4.1 g/dL (3.5-5.0); Albumin Globulin Ratio 1.5 (1.0-2.8); Alkaline Phosphatase 69 U/L (38-126); Aspartate Aminotransferase 40 IU/L (14-36); BUN Creatinine Ratio 14.1 (6-22); Bilirubin Total 0.7 mg/dL (0.2-1.3); Blood Urea Nitrogen 14 mg/dL (7-17); Calcium 9.4 mg/dL (8.4-10.2); Carbon Dioxide 31 mmol/L (22-32); Chloride 98 mmol/L (98-107); Estimated Glomerular Filt Rate > 60 mL/min (>60); Globulin 2.8 g/dL (1.7-4.1); Glucose 74 mg/dL (80-110); HEMOLYSIS < 15 (0-50); Potassium 4.1 mmol/L (3.4-5.1); Sodium 137 mmol/L (137-145); Total Protein 6.9 g/dL (6.3-8.2)
== END ==
LOC: LAB 13:10
PROVIDERS: PCP Physician Assistant; Referring Provider Internal Medicine Rheumatology; Visit Provider Internal Medicine Rheumatology
DX: M06.09 Rheumatoid arthritis without rheumatoid factor, multiple sites (principal); Z79.899 Other long term (current) drug therapy
CPT/HCPCS: 36415; 80053; 85025

== ENCOUNTER → 2023-11-01 13:22 | Outpatient (CLI) | payer MEDICARE, SELFPAY ==
[2023-11-01 15:13] LABS: Add Manual Diff / Slide Review NO; Basophils Absolute Auto 0 /uL (0-100); Basophils Percent Auto 0.5 % (0-2); Eosinophils Absolute Auto 100 /uL (0-450); Eosinophils Percent Auto 2.4 % (2-4); Hemoglobin 13.3 g/dL (12.0-16.0); Lymphocytes Absolute Auto 1400 /uL (1100-4500); Lymphocytes Percent Auto 23.2 % (25-40); Mean Corpuscular HGB Conc 34.3 % (30-36); Mean Corpuscular Hemoglobin 34.1 PG (26-34); Mean Corpuscular Volume 99.6 fL (80-100); Monocytes Absolute Auto 500 /uL (0-900); Neutrophils Absolute Auto 3900 /uL (1500-7000); Neutrophils Percent Auto 65.9 % (50-75); Platelet Count 183 X10^3/uL (150-400); Red Blood Cell Count 3.91 X10^6/uL (4.0-5.2); White Blood Cell Count 5.9 X10^3/uL (4.5-11.0)
[2023-11-01 16:27] LABS: Alanine Aminotransferase 28 IU/L (<35); Albumin 4.2 g/dL (3.5-5.0); Albumin Globulin Ratio 1.6 (1.0-2.8); Alkaline Phosphatase 74 U/L (38-126); Aspartate Aminotransferase 35 IU/L (14-36); Bilirubin Total 0.6 mg/dL (0.2-1.3); Blood Urea Nitrogen 19 mg/dL (7-17); Calcium 9.4 mg/dL (8.4-10.2); Carbon Dioxide 31 mmol/L (22-32); Chloride 99 mmol/L (98-107); Estimated Glomerular Filt Rate > 60 mL/min (>60); Globulin 2.7 g/dL (1.7-4.1); Glucose 66 mg/dL (80-110); HEMOLYSIS 17 (0-50); Sodium 135 mmol/L (137-145); Total Protein 6.9 g/dL (6.3-8.2)
== END ==
PROVIDERS: PCP Physician Assistant; Referring Provider Internal Medicine Rheumatology; Visit Provider Internal Medicine Rheumatology
DX: M06.09 Rheumatoid arthritis without rheumatoid factor, multiple sites (principal); Z79.899 Other long term (current) drug therapy
CPT/HCPCS: 36415; 80053; 85025

== ENCOUNTER → 2024-02-21 13:08 | Outpatient (CLI) | payer MEDICARE, SELFPAY ==
[2024-02-21 13:50] LABS: Add Manual Diff / Slide Review NO; Basophils Absolute Auto 0 /uL (0-100); Basophils Percent Auto 0.4 % (0-2); Eosinophils Absolute Auto 100 /uL (0-450); Eosinophils Percent Auto 2.4 % (2-4); Hematocrit 38.7 % (36-46); Hemoglobin 13.7 g/dL (12.0-16.0); Lymphocytes Absolute Auto 1500 /uL (1100-4500); Lymphocytes Percent Auto 25.9 % (25-40); Mean Corpuscular HGB Conc 35.3 % (30-36); Mean Corpuscular Hemoglobin 35.7 PG (26-34); Mean Corpuscular Volume 101.2 fL (80-100); Monocytes Absolute Auto 600 /uL (0-900); Monocytes Percent Auto 10.9 % (3-14); Neutrophils Absolute Auto 3400 /uL (1500-7000); Neutrophils Percent Auto 60.4 % (50-75); Platelet Count 193 X10^3/uL (150-400); Red Blood Cell Count 3.83 X10^6/uL (4.0-5.2); Red Cell Distribution Width 13.8 % (11.6-14.8); White Blood Cell Count 5.7 X10^3/uL (4.5-11.0)
[2024-02-21 14:17] LABS: Alanine Aminotransferase 32 IU/L (<35); Albumin 4.6 g/dL (3.5-5.0); Albumin Globulin Ratio 2.2 (1.0-2.8); Alkaline Phosphatase 72 U/L (38-126); Aspartate Aminotransferase 40 IU/L (14-36); BUN Creatinine Ratio 12.2 (6-22); Bilirubin Total 0.9 mg/dL (0.2-1.3); Blood Urea Nitrogen 18 mg/dL (7-17); Calcium 9.4 mg/dL (8.4-10.2); Carbon Dioxide 31 mmol/L (22-32); Chloride 91 mmol/L (98-107); Estimated Glomerular Filt Rate 38 mL/min (>60); Globulin 2.1 g/dL (1.7-4.1); Glucose 62 mg/dL (80-110); HEMOLYSIS < 15 (0-50); Potassium 4.9 mmol/L (3.4-5.1); Sodium 130 mmol/L (137-145); Total Protein 6.7 g/dL (6.3-8.2)
== END ==
PROVIDERS: PCP Physician Assistant; Referring Provider Internal Medicine Rheumatology; Visit Provider Internal Medicine Rheumatology
DX: M06.09 Rheumatoid arthritis without rheumatoid factor, multiple sites (principal); Z79.899 Other long term (current) drug therapy
CPT/HCPCS: 36415; 80053; 85025

== ENCOUNTER → 2024-09-10 14:15 | Outpatient (CLI) | payer MEDICARE, SELFPAY ==
[2024-09-10 15:43] LABS: Alanine Aminotransferase 48 IU/L (<35); Albumin 5.1 g/dL (3.5-5.0); Alkaline Phosphatase 85 U/L (38-126); Aspartate Aminotransferase 57 IU/L (14-36); BUN Creatinine Ratio 11.5 (6-22); Bilirubin Total 0.8 mg/dL (0.2-1.3); Blood Urea Nitrogen 12 mg/dL (7-17); Carbon Dioxide 30 mmol/L (22-32); Chloride 92 mmol/L (98-107); Estimated Glomerular Filt Rate 57 mL/min (>60); Globulin 2.5 g/dL (1.7-4.1); Glucose 81 mg/dL (80-110); HEMOLYSIS < 15 (0-50); Sodium 132 mmol/L (137-145); Total Protein 7.6 g/dL (6.3-8.2)
[2024-09-10 15:48] LABS: Add Manual Diff / Slide Review NO; Basophils Absolute Auto 0 /uL (0-100); Basophils Percent Auto 0.3 % (0-2); Eosinophils Absolute Auto 100 /uL (0-450); Eosinophils Percent Auto 2.1 % (2-4); Hematocrit 43.4 % (36-46); Hemoglobin 15.1 g/dL (12.0-16.0); Lymphocytes Absolute Auto 1500 /uL (1100-4500); Lymphocytes Percent Auto 23.8 % (25-40); Mean Corpuscular HGB Conc 34.9 % (30-36); Mean Corpuscular Hemoglobin 35.4 PG (26-34); Mean Corpuscular Volume 101.5 fL (80-100); Monocytes Absolute Auto 600 /uL (0-900); Monocytes Percent Auto 10.4 % (3-14); Neutrophils Absolute Auto 3900 /uL (1500-7000); Neutrophils Percent Auto 63.4 % (50-75); Platelet Count 230 X10^3/uL (150-400); Red Blood Cell Count 4.27 X10^6/uL (4.0-5.2); Red Cell Distribution Width 14.9 % (11.6-14.8); White Blood Cell Count 6.1 X10^3/uL (4.5-11.0)
== END ==
PROVIDERS: PCP Physician Assistant; Referring Provider Internal Medicine Rheumatology; Visit Provider Internal Medicine Rheumatology
DX: M06.09 Rheumatoid arthritis without rheumatoid factor, multiple sites (principal); Z79.899 Other long term (current) drug therapy
CPT/HCPCS: 36415; 80053; 85025